=== PATIENT | female | born 1995 | race African-American/Black ===

== ENCOUNTER 2016-10-25 17:47 | Emergency (ER) | payer OTHER ==
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
== END 2016-10-25 21:00 | disposition home or self-care (01) ==
LOC: CFTX 17:47 → CED 17:47 → CFTX 20:07
DX: S33.5XXA Sprain of ligaments of lumbar spine, initial encounter (principal); S80.12XA Contusion of left lower leg, initial encounter; S90.32XA Contusion of left foot, initial encounter; S90.02XA Contusion of left ankle, initial encounter; F17.210 Nicotine dependence, cigarettes, uncomplicated; V03.90XA Pedestrian on foot injured in collision with car, pick-up truck or van, unspecified whether traffic or nontraffic accident, initial encounter; Y92.009 Unspecified place in unspecified non-institutional (private) residence as the place of occurrence of the external cause
CPT/HCPCS: 71020; 72100; 73552; 73590; 73610; 73630; 99283